=== PATIENT | male | born 1980 | race Caucasian/White ===

== ENCOUNTER 2016-12-05 19:27 | Emergency (ER) | payer SELFPAY | END 2016-12-05 20:06 | disposition home or self-care (01) | LOC: SCSER 19:27 | DX: K04.4 Acute apical periodontitis of pulpal origin (principal); M54.41 Lumbago with sciatica, right side; F41.9 Anxiety disorder, unspecified; F17.210 Nicotine dependence, cigarettes, uncomplicated | CPT/HCPCS: 99283 ==